=== PATIENT | female | born 1995 | race Hispanic/Latino ===

== ENCOUNTER 2018-08-05 13:43 | Emergency (ER) | payer SELFPAY ==
[2018-08-05] MEDS ORDERED: DEXAMETHASONE SOD PHOSPHATE 10MG/ML 1ML VIAL ONE (14:34)
[2018-08-05] MEDS ORDERED: LIDOCAINE 5% TOPICAL PATCH TP ONE (14:35)
== END 2018-08-05 14:53 | disposition home or self-care (01) ==
LOC: EDH 13:43
DX: M54.41 Lumbago with sciatica, right side (principal); Z88.6 Allergy status to analgesic agent; V49.40XA Driver injured in collision with unspecified motor vehicles in traffic accident, initial encounter; Y93.89 Activity, other specified; Y92.89 Other specified places as the place of occurrence of the external cause; Y99.8 Other external cause status
CPT/HCPCS: 81025; 96372; 99283; J1100

== ENCOUNTER 2018-08-08 20:22 | Emergency (ER) | payer OTHER ==
[2018-08-08] MEDS ORDERED: CYCLOBENZAPRINE HCL 10 MG TABLET ONE (21:03)
== END 2018-08-08 21:13 | disposition home or self-care (01) ==
LOC: EDH 20:22
DX: M54.5 Low back pain (principal); Z88.6 Allergy status to analgesic agent